=== PATIENT | female | born 1955 | race African-American/Black ===

== ENCOUNTER 2023-02-25 13:57 | Inpatient (IN) | payer MEDICARE, MEDICAID ==
[~2023-02-25] VITALS: Ht 157.5 cm; Wt 65.9 kg
[2023-02-25] MEDS ORDERED: IOHEXOL-350 100 ML BOTTLE ONE (14:19)
[2023-02-25 14:59] LABS: CHLORIDE 105 mEq/L (98-107); INDEX HEMOLYSI 1 (1-3); INDEX ICTERIC 1 (1-4); INDEX LIPEMIC 1 (1-3); POTASSIUM 3.7 mEq/L (3.5-5.1); SODIUM 138 mEq/L (136-145)
[2023-02-25 15:09] LABS: ALANINE AMINOTRANSFERASE 40 IU/L (13-61); ALBUMIN 3.5 g/dL (3.4-5.0); ASPARTATE AMINOTRANSFERASE 42 IU/L (15-37); BASOPHILS % 0.6 % (0.0-2.0); BILIRUBIN TOTAL 0.3 mg/dL (0.1-1.0); CARBON DIOXIDE 28 mEq/L (21-32); EOSINOPHILS % 0.1 % (0.0-5.0); GLUCOSE 104 mg/dL (70-105); HEMATOCRIT. 33.7 % (36.0-48.0); HEMOGLOBIN. 10.6 g/dL (12.0-16.0); LYMPHOCYTES % 20.6 % (20.0-50.0); MEAN CORPUSCULAR HEMOGLOBIN 27.1 pg (28.0-32.0); MEAN CORPUSCULAR HGB CONC 31.5 g/dL (31.0-37.0); MEAN PLATELET VOLUME 9.7 fl (7.4-10.4); MONOCYTES % 13.1 % (2.0-8.0); NEUTROPHILS % 65.6 % (40.0-76.0); PLATELET 257 x1000/uL (130-400); PROTEIN TOTAL 7.9 g/dL (6.0-8.3); RED BLOOD CELL COUNT 3.92 mill/uL (4.2-5.4); RED CELL DISTRIBUTION WIDTH 14.4 % (11.6-14.6); UREA NITROGEN BLOOD 21 mg/dL (7-21); WHITE BLOOD COUNT 8.3 x1000/uL (4.5-11.0)
[2023-02-25 15:10] LABS: AMMONIA 20 uMol/L (<32)
[2023-02-25 15:17] LABS: PARTIAL THROMBOPLASTIN TIME 24.3 sec (23.4-31.0)
[2023-02-25] MEDS ORDERED: ASPIRIN 81MG TABLET PO ONE (16:00)
[2023-02-25 16:09] LABS: TROPONIN I HIGH SENSITIVITY 63 ng/L (<54)
[2023-02-25] MEDS ORDERED: [UNRECOGNIZED DRUG - REMARK] IV ONE ×4 (17:00)
[2023-02-26] VITALS (7 sets, daily range): BP systolic 136–173; BP diastolic 72–92; PULSE 62–82; RESP 18–21; TEMP 97–100.2
[2023-02-26] MEDS: SODIUM CHLORIDE 0.9% 1,000 ML IV SCH (07:00)
[2023-02-26] MEDS ORDERED: ACETAMINOPHEN 325MG TABLET PO PRN (07:00)
[2023-02-26] MEDS ORDERED: ONDANSETRON HCL 4MG/2ML INJ IV PRN (07:00)
[2023-02-26] MEDS: ENOXAPARIN 40MG/0.4ML SYR SUBCUT SCH (08:31)
[2023-02-26] MEDS: PANTOPRAZOLE SODIUM 40 MG/VIAL IV SCH (08:31)
[2023-02-26] MEDS: BLOOD SUGAR DIAGNOSTIC STRIP TEST SCH ×3 (12:17→21:18)
[2023-02-26] MEDS: CLONIDINE 0.1MG TABLET PO PRN (21:20)
[2023-02-27] VITALS: BP 135/79; PULSE 61; RESP 17; TEMP 98.6
[2023-02-27] MEDS ORDERED: LACT10SO81 PO (00:08)
[2023-02-27] MEDS ORDERED: LISI20TA31 MT (00:08)
[2023-02-27] MEDS ORDERED: ATEN-42 MT (00:08)
[2023-02-27] MEDS ORDERED: CYAN250010 PO (00:08)
[2023-02-27] MEDS ORDERED: ASPI-1497 MT (00:08)
[2023-02-27] MEDS ORDERED: METF-415 MT (00:08)
[2023-02-27] MEDS ORDERED: MELA10TA2 MT (00:08)
[2023-02-27] MEDS ORDERED: ATOR40TA70 MT (00:08)
[2023-02-27] MEDS: SODIUM CHLORIDE 0.9% 1,000 ML IV SCH ×3 (02:57→18:06)
[2023-02-27 04:00] VITALS: BP 152/84; PULSE 87; RESP 17; TEMP 97.9
[2023-02-27] MEDS: BLOOD SUGAR DIAGNOSTIC STRIP TEST SCH ×4 (06:03→20:49)
[2023-02-27 06:47] LABS: BASOPHILS % 0.5 % (0.0-2.0); EOSINOPHILS % 2.9 % (0.0-5.0); HEMATOCRIT. 31.4 % (36.0-48.0); HEMOGLOBIN. 10.2 g/dL (12.0-16.0); MEAN CORPUSCULAR HEMOGLOBIN 27.6 pg (28.0-32.0); MEAN CORPUSCULAR HGB CONC 32.4 g/dL (31.0-37.0); MEAN CORPUSCULAR VOLUME 85.1 fL (81.0-99.0); MEAN PLATELET VOLUME 9.5 fl (7.4-10.4); MONOCYTES % 7.8 % (2.0-8.0); NEUTROPHILS % 57.8 % (40.0-76.0); PLATELET 240 x1000/uL (130-400); RED BLOOD CELL COUNT 3.69 mill/uL (4.2-5.4); RED CELL DISTRIBUTION WIDTH 14.3 % (11.6-14.6); WHITE BLOOD COUNT 5.4 x1000/uL (4.5-11.0)
[2023-02-27 08:00] VITALS: BP 155/77; PULSE 64; RESP 18; TEMP 97.7
[2023-02-27 08:12] LABS: CHLORIDE 105 mEq/L (98-107); INDEX HEMOLYSI 1 (1-3); INDEX ICTERIC 1 (1-4); INDEX LIPEMIC 1 (1-3); POTASSIUM 3.2 mEq/L (3.5-5.1); SODIUM 138 mEq/L (136-145)
[2023-02-27 08:20] LABS: CALCIUM 8.1 mg/dL (8.5-10.1); CARBON DIOXIDE 27 mEq/L (21-32); CREATININE 0.7 mg/dL (0.6-1.3); GLUCOSE 94 mg/dL (70-105); UREA NITROGEN BLOOD 9 mg/dL (7-21)
[2023-02-27] MEDS: PANTOPRAZOLE SODIUM 40 MG/VIAL IV SCH (10:35)
[2023-02-27] MEDS: ENOXAPARIN 40MG/0.4ML SYR SUBCUT SCH (10:36)
[2023-02-27 12:00] VITALS: BP 100/72; PULSE 72; RESP 18; TEMP 97.8
[2023-02-27 14:16] LABS: TROPONIN I HIGH SENSITIVITY 68 ng/L (<54)
[2023-02-27 16:00] VITALS: BP 125/80; PULSE 86; RESP 18; TEMP 97.5
[2023-02-27 20:00] VITALS: BP 160/82; PULSE 79; RESP 19; TEMP 97.5
[2023-02-28] VITALS (7 sets, daily range): BP systolic 123–167; BP diastolic 56–91; PULSE 54–86; RESP 16–20; TEMP 96.4–97.8
[2023-02-28] MEDS: CLONIDINE 0.1MG TABLET PO PRN (00:37)
[2023-02-28] MEDS: BLOOD SUGAR DIAGNOSTIC STRIP TEST SCH ×4 (05:32→20:59)
[2023-02-28] MEDS: ENOXAPARIN 40MG/0.4ML SYR SUBCUT SCH (08:33)
[2023-02-28] MEDS: PANTOPRAZOLE SODIUM 40 MG/VIAL IV SCH (08:34)
[2023-02-28] MEDS: SODIUM CHLORIDE 0.9% 1,000 ML IV SCH (11:57)
[2023-02-28] MEDS ORDERED: CEFTRIAXONE SODIUM 1 G/VIAL IM ONE (13:30)
[2023-02-28] MEDS ORDERED: CEFTRIAXONE SODIUM 1 G/VIAL IV ONE (15:30)
[2023-02-28 16:21] LABS: CLARITY URINE CLEAR (CLEAR); COLOR URINE YELLOW (YELLOW); GLUCOSE URINE NEGATIVE (NEGATIVE); KETONES URINE NEGATIVE (NEGATIVE); LEUKOCYTE ESTERASE URINE TRACE (NEGATIVE); NITRITE URINE NEGATIVE (NEGATIVE); OCCULT BLOOD URINE NEGATIVE (NEGATIVE); PROTEIN URINE NEGATIVE (NEGATIVE); SPECIFIC GRAVITY URINE 1.009 (1.005-1.030)
[2023-02-28] MEDS ORDERED: CEFTRIAXONE 1,000 MG in DEXTROSE 5% WATER 50 ML IV NR (16:30)
[2023-02-28 16:36] LABS: RBC URINE NONE SEEN /hpf (0-2)
[2023-02-28 16:37] LABS: BACTERIA URINE NONE SEEN; SQUAMOUS EPITHELIAL CELL URINE RARE /lpf (RARE/1+)
[2023-03-01] VITALS: BP 150/80; PULSE 90; RESP 18; TEMP 97
[2023-03-01 04:00] VITALS: BP 149/80; PULSE 56; RESP 18; TEMP 97.5
[2023-03-01] MEDS: SODIUM CHLORIDE 0.9% 1,000 ML IV SCH ×2 (04:15→15:20)
[2023-03-01] MEDS: BLOOD SUGAR DIAGNOSTIC STRIP TEST SCH ×3 (06:24→18:01)
[2023-03-01 08:00] VITALS: BP 164/73; PULSE 52; RESP 15; TEMP 96.4
[2023-03-01] MEDS: ENOXAPARIN 40MG/0.4ML SYR SUBCUT SCH (09:05)
[2023-03-01] MEDS: PANTOPRAZOLE SODIUM 40 MG/VIAL IV SCH (09:07)
[2023-03-01 12:00] VITALS: BP 144/94; PULSE 65; RESP 16; TEMP 97.2
[2023-03-01 16:00] VITALS: BP 138/93; PULSE 65; RESP 16; TEMP 97.6
[2023-03-01 16:09] VITALS: BP 138/93; PULSE 65; TEMP 97.6; O2SAT 95
== END 2023-03-01 18:40 | DRG 71 ==
LOC: ER 13:57 → 8WST 15:51
PROVIDERS: ADMIT Internal Medicine; ATTEND Internal Medicine
DX: G93.41 Metabolic encephalopathy (principal); F05 Delirium due to known physiological condition; N39.0 Urinary tract infection, site not specified; F03.90 Unspecified dementia, unspecified severity, without behavioral disturbance, psychotic disturbance, mood disturbance, and anxiety; E11.9 Type 2 diabetes mellitus without complications; Z20.822 Contact with and (suspected) exposure to COVID-19; E78.5 Hyperlipidemia, unspecified; Z66 Do not resuscitate; I10 Essential (primary) hypertension; Z86.73 Personal history of transient ischemic attack (TIA), and cerebral infarction without residual deficits
CPT/HCPCS: 36415; 70496; 70498; 70551; 71045; 80048; 80053; 81003; 82140; 82962; 84484; 85025; 86850; 86900; 87426; 93005; 93306; 93970; 97162; 99291; C9113; J0696; J1650; J3411; J3490; J7030; J7060; J7070; Q9967

== ENCOUNTER 2024-03-06 11:52 | Emergency (ER) | payer MEDICARE, MEDICAID ==
[~2024-03-06] VITALS: Ht 172.7 cm; Wt 79.0 kg
[~2024-03-06 11:52] MED LIST: ASPI-1497 MT; ATEN-42 MT; ATOR40TA70 MT; CEFD300C3 MT; CYAN250010 PO; LACT10SO81 PO; LISI20TA31 MT; MELA10TA2 MT; METF-415 MT
[2024-03-06 12:00] VITALS: O2SAT 98
[2024-03-06 13:16] LABS: BASOPHILS % 0.6 % (0.0-2.0); HEMATOCRIT. 31.1 % (36.0-48.0); HEMOGLOBIN. 9.9 g/dL (12.0-16.0); LYMPHOCYTES % 19.9 % (20.0-50.0); MEAN CORPUSCULAR HEMOGLOBIN 27.8 pg (28.0-32.0); MEAN CORPUSCULAR HGB CONC 31.7 g/dL (31.0-37.0); MEAN CORPUSCULAR VOLUME 87.5 fL (81.0-99.0); MEAN PLATELET VOLUME 8.7 fl (7.4-10.4); MONOCYTES % 8.5 % (2.0-8.0); PLATELET 278 x1000/uL (130-400); RED BLOOD CELL COUNT 3.55 mill/uL (4.2-5.4); RED CELL DISTRIBUTION WIDTH 14.1 % (11.6-14.6); WHITE BLOOD COUNT 10.6 x1000/uL (4.5-11.0)
[2024-03-06 13:34] LABS: CHLORIDE 107 mEq/L (98-107); POTASSIUM 3.7 mEq/L (3.5-5.1); SODIUM 143 mEq/L (136-145)
[2024-03-06 13:35] LABS: CALCIUM 9.5 mg/dL (8.7-10.4); CARBON DIOXIDE 28 mEq/L (21-32)
[2024-03-06 13:37] LABS: CLARITY URINE CLOUDY (CLEAR); COLOR URINE DARK YELLOW (YELLOW); GLUCOSE URINE NEGATIVE (NEGATIVE); KETONES URINE TRACE (NEGATIVE); LEUKOCYTE ESTERASE URINE 2+ (NEGATIVE); NITRITE URINE POSITIVE (NEGATIVE); OCCULT BLOOD URINE TRACE (NEGATIVE); PROTEIN URINE TRACE (NEGATIVE); SPECIFIC GRAVITY URINE 1.026 (1.005-1.030)
[2024-03-06 13:40] LABS: CREATININE 1.1 mg/dL (0.6-1.0); GLUCOSE 84 mg/dL (70-105); UREA NITROGEN BLOOD 25 mg/dL (9-23)
[2024-03-06 13:42] LABS: ALANINE AMINOTRANSFERASE 12 IU/L (10-49); ALBUMIN 3.8 g/dL (3.2-4.8); ASPARTATE AMINOTRANSFERASE 22 IU/L (<34); BILIRUBIN DIRECT 0.2 mg/dL (<=3.0); BILIRUBIN TOTAL 0.5 mg/dL (0.1-1.0); PROTEIN TOTAL 6.9 g/dL (6.0-8.3)
[2024-03-06 13:52] LABS: BACTERIA URINE 4+; SQUAMOUS EPITHELIAL CELL URINE 1+ /lpf (RARE/1+); YEAST URINE NONE SEEN
[2024-03-06] MEDS: CEFTRIAXONE SODIUM 1G VIAL IM NR (14:18)
[2024-03-06] MEDS ORDERED: CEPH500C2 MT (14:21)
[2024-03-06 16:18] VITALS: BP 163/65; PULSE 52; RESP 18; TEMP 36.66960; O2SAT 98
== END 2024-03-06 16:44 ==
LOC: ER 12:29
DX: N39.0 Urinary tract infection, site not specified (principal); I10 Essential (primary) hypertension; F03.90 Unspecified dementia, unspecified severity, without behavioral disturbance, psychotic disturbance, mood disturbance, and anxiety; Z79.899 Other long term (current) drug therapy; Z86.73 Personal history of transient ischemic attack (TIA), and cerebral infarction without residual deficits; Z79.82 Long term (current) use of aspirin
CPT/HCPCS: 99285; 74176; 80076; 80048; 81003; 83690; 85025; 85610; 36415; 96372; J0696